=== PATIENT | male | born 1980 | race Two or more races ===

== ENCOUNTER 2017-10-27 11:03 | Emergency (ER) | payer OTHER ==
[~2017-10-27] VITALS: Ht 170.2 cm; Wt 98.4 kg
[~2017-10-27 11:03] MED LIST: ACETA325 MG PO; CIPRO500 MG PO; KETO10TA2 PO; NORVIR80 MG/ML PO; PREZISTA300 MG PO; TAMS0.4C PO; ULTRACET PO; VIREAD300 MG PO
[2017-10-27] MEDS ORDERED: SELZENTRY300 MG (11:44)
[2017-10-27] MEDS ORDERED: KETO10TA2 PO (17:50)
[2017-10-27] MEDS ORDERED: TAMS0.4C PO (17:50)
[2017-10-27] MEDS ORDERED: CIPRO500 MG PO (17:50)
== END 2017-10-27 17:57 | disposition home or self-care (01) ==
LOC: ER 11:03
DX: N20.1 Calculus of ureter (principal); N20.0 Calculus of kidney; R31.0 Gross hematuria

== ENCOUNTER 2022-12-02 22:18 | Emergency (ER) | payer OTHER ==
[~2022-12-02] VITALS: Ht 170.2 cm; Wt 108.9 kg
[~2022-12-02 22:18] MED LIST changes: +SELZENTRY300 MG
[2022-12-02] MEDS ORDERED: TOPROL XL25 M1 PO (22:48)
[2022-12-02] MEDS ORDERED: COZAAR50 MG PO (22:48)
[2022-12-02] MEDS ORDERED: INTELENCE200 MG PO (22:48)
[2022-12-02] MEDS ORDERED: CHILDREN'S ASPI81 MG PO (22:49)
== END 2022-12-03 | disposition home or self-care (01) ==
LOC: ER 22:18
DX: J06.9 Acute upper respiratory infection, unspecified (principal); Z20.822 Contact with and (suspected) exposure to COVID-19

== ENCOUNTER 2022-12-04 10:21 | Outpatient (CLI) | payer OTHER ==
[~2022-12-04 10:21] MED LIST changes: +CHILDREN'S ASPI81 MG PO; +COZAAR50 MG PO; +INTELENCE200 MG PO; +TOPROL XL25 M1 PO
== END 2022-12-04 23:00 | disposition home or self-care (01) ==
LOC: LAB 10:21
PROVIDERS: ATTEND Internal Medicine Cardiovascular Disease
DX: J11.1 Influenza due to unidentified influenza virus with other respiratory manifestations (principal); A49.3 Mycoplasma infection, unspecified site; B34.9 Viral infection, unspecified; U07.1 COVID-19

== ENCOUNTER → 2025-01-13 | Emergency (ER) | payer OTHER | END | disposition left against medical advice (07) | LOC: ER 17:56 | DX: Z53.21 Procedure and treatment not carried out due to patient leaving prior to being seen by health care provider (principal) ==